=== PATIENT | male | born 2000 | race Caucasian/White ===

== ENCOUNTER 2020-01-04 11:08 | Emergency (ER) | payer OTHER, SELFPAY ==
[2020-01-04 11:18] VITALS: BP 138/81; PULSE 72; RESP 18; TEMP 37.3; O2SAT 100
--- NOTE | 2020-01-04 11:32 | ED.URI ---
HPI - URI/Sore Throat General Chief Complaint: Upper Respiratory Infection Stated Complaint: cough/sore throat Time Seen by Provider: 01/04/20 11:32 Source: patient and RN notes reviewed Mode of arrival: ambulatory Limitations: no limitations History of Present Illness HPI Narrative: 19-year-old male who presents to [facility] care with complaints of sore throat for the past 2-3 days with sinus drainage in back of throat and cough.Patient has had low grade fevers,no chills or sweats, denies any shortness of breath, no recent travel. Patient states that he had his tonsil and adenoids removed and he still has had strep several times even after having tonsils removed, patient states history also of seasonal allergies. MD elicited complaint: cough, sore throat, rhinorrhea and nasal congestion Pertinent past history: seasonal allergies and other (strep) Onset (ago): day(s) (3) Consistency: progressively worsening Severity: severe Pain scale (0-10): 8 Description of mucous: clear and green Able to tolerate fluids by mouth: Yes Exacerbating factors: swallowing Related Data Allergies Allergy/AdvReac Type Severity Reaction Status Date / Time No Known Allergies Allergy Verified 01/04/20 11:22 Review of Systems Review of Systems: Narrative: CONSTITUTIONAL: low grade temperature with no chills, or sweats. EYES: Denies visual changes, redness, or discharge. ENT: positive clear rhinorrhea, congestion, sore throat, no otalgia. CARDIOVASCULAR: Denies chest pain, palpitations, or edema. RESPIRATORY: positive cough expectoration of greenish drainage, denies dyspnea. GASTROINTESTINAL: Denies abdominal pain, nausea, vomiting, or diarrhea. GENITOURINARY: Denies dysuria or hematuria. SKIN: Denies rash or itching. MUSCULOSKELETAL: Denies back pain, joint pain, or myalgia. NEUROLOGIC: Denies headache, numbness, or weakness. PSYCHIATRIC: Denies anxiety or depression. All systems reviewed & are unremarkable except as noted in HPI and below [facility] Past Medical History Medical History (Updated 01/04/20 @ 12:08 by Laila Diaz NP) Asthma Fracture of right tibia and fibula Hypospadias in male Seasonal allergies Strep throat Surgical History Surgical History (Updated 01/04/20 @ 12:58 by Laila Diaz NP) History of nasal cauterization History of tonsillectomy and adenoidectomy Social History Social History (Updated 01/04/20 @ 11:37 by Laila Diaz NP) Tobacco type: e-cigarettes Living arrangements: with family Gender identity (if verbalized by the patient): Male Comments At time of signature, agree with nursing past medical, surgical, social and family history. There is no relevant family history pertinent to the presenting complaint Exam Narrative: Exam Narrative: GENERAL: Well-appearing, well-nourished, and in no acute distress. HEAD: Normocephalic, atraumatic. EYES: PERRLA and EOMI. ENT: Nares red, clear rhinorrhea no epistaxis. Mucous membranes moist.TM's normal with good light reflex, throat red and swollen, no lesions or exudate NECK: Supple.no lymphadenopathy CHEST: Clear to auscultation. No respiratory distress, productive cough of greenish drainage.SAO2 100% on room air HEART: Regular rate and rhythm. No murmur heard. Normal peripheral pulses. ABDOMEN: Soft, nontender, nondistended, normal active bowel sounds. EXTREMITIES: Normal range of motion. No edema. SKIN: Warm, dry, no rash. NEURO: No focal deficits. Alert and oriented x3. Course Vital Signs Vital signs: Vital Signs Temperature 37.3 C 01/04/20 11:18 Pulse Rate 72 01/04/20 11:18 Respiratory Rate 18 01/04/20 11:18 Blood Pressure 138/81 01/04/20 11:18 Pulse Oximetry 100 01/04/20 11:18 Temperature 37.3 C 01/04/20 11:18 Pulse Rate 72 01/04/20 11:18 Respiratory Rate 18 01/04/20 11:18 Blood Pressure 138/81 01/04/20 11:18 Pulse Oximetry 100 01/04/20 11:18 MDM - URI/Sore Throat Differential Diagnosis Differential
== END 2020-01-04 11:55 | disposition home or self-care (01) ==
PROVIDERS: Emergency Provider Registered Nurse
DX: J06.9 Acute upper respiratory infection, unspecified (principal); R05 Cough; J02.9 Acute pharyngitis, unspecified; F17.200 Nicotine dependence, unspecified, uncomplicated; J45.909 Unspecified asthma, uncomplicated
CPT/HCPCS: 87081; 87880; 99213; G0463